=== PATIENT | male | born 1975 | race Hispanic/Latino ===

== ENCOUNTER → 2025-02-14 | Outpatient (CLI) | payer OTHER ==
[2025-02-14 21:55] VITALS: PULSE 68; RESP 16
[2025-02-14 22:30] VITALS: PULSE 68; RESP 14
[2025-02-14 23:00] VITALS: PULSE 64; RESP 12
[2025-02-14 23:30] VITALS: PULSE 64; RESP 12
[2025-02-15] VITALS (11 sets, daily range): PULSE 60–70; RESP 4–12
== END | disposition home or self-care (01) ==
LOC: SLP 20:26
PROVIDERS: ATTEND Family Medicine
DX: G47.33 Obstructive sleep apnea (adult) (pediatric) (principal); G47.10 Hypersomnia, unspecified; R06.83 Snoring; R51.9 Headache, unspecified
CPT/HCPCS: 95810

== ENCOUNTER → 2025-02-21 | Outpatient (CLI) | payer OTHER ==
[2025-02-21 22:19] VITALS: PULSE 74; RESP 18
[2025-02-21 23:00] VITALS: PULSE 70; RESP 14
[2025-02-21 23:30] VITALS: PULSE 72; RESP 10
[2025-02-22] VITALS (12 sets, daily range): PULSE 58–72; RESP 8–18
== END | disposition home or self-care (01) ==
LOC: EDUNIT# 20:30 → SLP 20:37
PROVIDERS: ATTEND Family Medicine
DX: G47.33 Obstructive sleep apnea (adult) (pediatric) (principal); R06.83 Snoring; G47.10 Hypersomnia, unspecified
CPT/HCPCS: 95811